=== PATIENT | female | born 1960 | race Caucasian/White ===

== ENCOUNTER 2023-11-23 20:47 | Emergency (ER) | payer MEDICAID, OTHER ==
[~2023-11-23] VITALS: Ht 152.4 cm; Wt 63.6 kg
[2023-11-23 21:30] VITALS: TEMP 98.5
[2023-11-24 00:26] LABS: BASOPHILS % (AUTO) 0.6 % (0.0-2.0); EOSINOPHILS % (AUTO) 0.6 % (1.0-6.0); HEMATOCRIT 44.4 % (36-46); HEMOGLOBIN 14.9 g/dL (12.0-16.0); LYMPHOCYTES # (AUTO) 1.6 K/uL (1.0-4.8); LYMPHOCYTES % (AUTO) 14.5 % (22.0-44.0); MEAN CORPUSCULAR HGB CONC 33.5 G/dL (31.0-37.0); MEAN CORPUSCULAR VOLUME 93 fL (80-100); MONOCYTES # (AUTO) 0.8 K/uL (0.1-1.0); MONOCYTES % (AUTO) 7.1 % (2.0-9.0); NEUTROPHILS # (AUTO) 8.8 K/uL (1.8-7.7); NEUTROPHILS % (AUTO) 77.2 % (40.0-70.0); PLATELET COUNT (AUTO) 274 K/uL (150-450); RED BLOOD CELL COUNT(AUTO) 4.79 MIL/uL (4.00-5.20); RED CELL DISTRIBUTION WIDTH 13.6 % (11.5-14.5); WHITE BLOOD COUNT (AUTO) 11.3 K/uL (4.5-11.0)
[2023-11-24 00:33] VITALS: BP 128/66; PULSE 90; RESP 20
[2023-11-24 00:39] LABS: ANION GAP 6 mmol/L (8-16); CARBON DIOXIDE 29 mmol/L (22-29); CHLORIDE 104 mmol/L (98-107); CREATININE 0.48 mg/dL (0.60-1.30); GLOMERULAR FILTR. RATE CALC > 60 mL/min (>60); GLUCOSE,RANDOM 126 mg/dL (70-110); POTASSIUM 3.6 mmol/L (3.5-5.1); SODIUM SERUM 139 mmol/L (136-145); UREA NITROGEN, BLOOD 6 mg/dL (7-18)
[2023-11-24] MEDS: SULFAMETHOX/TRIMETH DS 800-160 MG/TABLET PO ONE (01:14)
[2023-11-24] MEDS: CEPHALEXIN MONOHYDRATE 500 MG CAPSULE PO ONE (01:14)
[2023-11-24] MEDS: IBUPROFEN 600 MG TABLET PO ONE (01:15)
[2023-11-24] MEDS ORDERED: CEPH-558 PO (01:45)
[2023-11-24] MEDS ORDERED: SULF-261 PO (01:45)
== END 2023-11-24 02:05 | disposition home or self-care (01) ==
LOC: EMS 20:47
DX: L03.116 Cellulitis of left lower limb (principal); E11.9 Type 2 diabetes mellitus without complications; F17.210 Nicotine dependence, cigarettes, uncomplicated
CPT/HCPCS: 80048; 82962; 85025; 99284